=== PATIENT | female | born 1990 | race Caucasian/White ===

== ENCOUNTER 2017-07-25 13:09 | Outpatient (RCR) | payer BC ==
[~2017-07-25] VITALS: Ht 162.6 cm; Wt 87.1 kg
[~2017-07-25 13:09] MED LIST: AMO250L PO; HYDEL PO
--- NOTE | 2017-07-26 11:11 | Medical Nutrition Therapy ---
Nutrition Anthropometrics Height (Inches): 64 Weight (Pounds): 192 Bryce Nutrition Score: Bryce Nutrition Risk Score: Dietary Referral Nutrition Risk Factors: Nutrition Risk Comment: Physical Findings Physical Appearance: wt Skin Appearance Skin Appearance: Edema Edema Location Modifier: Edema Location: Type of Edema: Degree of Edema: Gastrointestinal Symptoms GI Symtoms: Tube Present: Bowel Sounds: Recent Bowel Pattern: Stool Characteristics: Nutrition/Food History Good Skipped Meals: No Alcohol Use: Never Breakfast: oatmeal, fruit Lunch: sandwich, soup, milk Dinner: chicken, salad, rice, milk Snacks: fruit Nutritional Diagnosis Nutrition Diagnosis: Nutr. Knowledge Deficit Nutrition Etiology: Nutr. Knowledge Deficit Diet Type: Diabetic Nutritional Education Nutrition Education Topic: Diabetic Nutrition Learning Readiness: Eager, Interested Teaching Methods: Discussion, Handout, Demonstration Response to Teaching: Return demonstration, Verbalize understanding Teaching Recipient: Patient, Significant Other Nutrition Monitoring & Eval RD Patient Assessment Time: [address] Assessment Type: RD Education Nutritional Comment: Late entry for 07/25/2017 Pt recently diagnosed with Gestational Diabetes after 3 hour GTT of 70, 172, 179, 145. Instructed on SMBG, and pt able to test blood glucuse with very little assistance. BG at 2:00pm was 91 (2 hour PP). Pt and educated on GDM and importance of carbohydrate control at meals/snacks. Discussed meal plan. Pt able to use label reading and knowledge of carb counting to plan simple meals without assistance. Also encouraged pt to slightly increase activity to help BG control and avoid processed foods. I personally spent a total of 60 minutes educating/counseling patient regarding gestational diabetes and nutrtion therapy in a individual setting. See education section and my note above for details. Copies To Copies to: FELA ALBA MD, DIANNE July 26, 2017 11:11
[2017-08-10 13:00] VITALS: Ht 162.6 cm; Wt 87.1 kg
[2017-08-10] MEDS ORDERED: PREN-127 PO (16:30)
[2017-08-11] MEDS ORDERED: LOR5/325 PO (05:39)
[2017-08-11] MEDS ORDERED: IBUP800T37 PO (16:00)
== END 2017-08-20 13:19 | disposition home or self-care (01) ==
LOC: DIET 13:09
PROVIDERS: ATTEND Obstetrics & Gynecology
DX: Z71.3 Dietary counseling and surveillance (principal); O24.419 Gestational diabetes mellitus in pregnancy, unspecified control
CPT/HCPCS: G0108 ×2

== ENCOUNTER 2017-08-10 12:15 | Inpatient (IN) | payer BC ==
[~2017-08-10] VITALS: Ht 162.6 cm; Wt 88.5 kg
[2017-08-10 13:00] VITALS: BP 145/91; Ht 162.6 cm; Wt 88.5 kg
[2017-08-10] MEDS ORDERED: LABETALOL HCL 100 MG/20ML VIAL IVP PRN (13:25)
[2017-08-10] MEDS ORDERED: LIDOCAINE/SOD BICARB 8.4% SYR ONE (14:12)
[2017-08-10 14:27] LABS: PLATELET COUNT, AUTOMATED 225 K/uL (150-450)
--- NOTE | 2017-08-10 15:22 | RADIOLOGY IMAGING REPORT ---
FACILITY: [facility] - [place] PATIENT NAME: Lucia Browning : 1990 MR: [id number] V: [id number] EXAM DATE: ORDERING PHYSICIAN: DAVI GRAY TECHNOLOGIST: Location: [facility] Patient: Lucia Browning : 1990 Visit/Account:[id number] Date of Sevice: 08/10/2017 Limited OB ultrasound Indication: Decreased movement. Comparison: None available FINDINGS: Intrauterine gestations: one presentation: Cephalic heart rate: No evidence of heart tones. Amniotic fluid index: 9.7 cm Largest amniotic fluid pocket 2.7 cm Placenta: Posterior/fundal without previa Gestational Parameters: BPD: 7.46 cm 30 weeks zero days HC: 27.6 cm 30 weeks 2 days AC: 24.22 cm 28 weeks 4 days FL: 5.68 cm 29 weeks 6 days Average ultrasound age (AUA): 29 weeks 5 days PORTIA: 10/21/2017 Estimated weight (EFW): 3 lbs. 0 oz. No heart tones are demonstrated. Findings are consistent with intrauterine demise. IMPRESSION: 1. No evidence of heart tones or movement. Findings are consistent with intrauterine feta l demise. 2. Estimated gestational age 29 weeks 5 days giving which is discordant from LMP which would estimate the gestational age as 31 weeks zero days. Results were discussed with DAVI GRAY at 08/10/2017 3:18 PM. Report Dictated By: Santhosh Vallejo at 08/10/2017 3:06 PM Report E-Signed By: Santhosh Vallejo at 08/10/2017 3:18 PM WSN:[id number]
[2017-08-10] MEDS ORDERED: MISOPROSTOL 25 MCG CAP PV PRN (15:25)
[2017-08-10] MEDS ORDERED: FAMOTIDINE(*) 20MG/50ML PREMIX 50 ML IVPB PRN (15:42)
[2017-08-10] MEDS ORDERED: LR(*) 1000 ML BAG 1,000 ML IV SCH (15:42)
[2017-08-10] MEDS ORDERED: LIDOCAINE 1% LOCAL 300 MG/30ML INJ PRN (15:45)
[2017-08-10] MEDS ORDERED: METOCLOPRAMIDE 10 MG/2 ML SDV IVP PRN (15:45)
[2017-08-10] MEDS ORDERED: fentaNYL CITR 100 MCG/2 ML AMP IVP PRN (15:45)
[2017-08-10] MEDS ORDERED: PREN-127 PO (16:30)
[2017-08-10] MEDS ORDERED: BUPIVACAINE 0.25% MPF INJ EPI PRN (16:35)
[2017-08-10] MEDS ORDERED: ePHEDrine 25 MG/5 ML DISP.SYR IVP PRN (16:35)
[2017-08-10] MEDS ORDERED: BUPIVACAINE 0.5% INJ 30ML VIAL EPI PRN (16:35)
[2017-08-10] MEDS ORDERED: LIDOCAINE/PF 2% 200MG/10ML AMP 200 MG/10 ML AMPUL EPI PRN (16:35)
[2017-08-10] MEDS ORDERED: FENTANYL/ROPIVACAINE 100 ML BAG EPI PRN (16:35)
[2017-08-10] MEDS ORDERED: fentaNYL CITR 100 MCG/2 ML AMP IT PRN (16:35)
[2017-08-10] MEDS ORDERED: LIDO/EPI 2% MPF 1:200,000 20ML EPI PRN (16:35)
[2017-08-10] MEDS ORDERED: LR(*) 1000 ML BAG 1,000 ML IV PRN (16:35)
[2017-08-10] MEDS ORDERED: FLUSH 10 ML SYR IV SCH (17:00)
[2017-08-10] MEDS ORDERED: EPIDURAL KEYS XX PRN (17:00)
[2017-08-10] MEDS ORDERED: ACETAMINOPHEN 500 MG TAB PO PRN (18:10)
[2017-08-10] MEDS: MISOPROSTOL 25 MCG CAP PV PRN (20:03)
[2017-08-11] MEDS: MISOPROSTOL 25 MCG CAP PV PRN (00:05)
--- NOTE | 2017-08-11 01:57 | Anesthesia OB Pre-Anes Eval ---
History of Present Illness Anesthesia Start Date: August 11, 2017 Anesthesia Start Time: 01:55 Complications: demise EDC: Oct 12, 2017 : [id number] Para: 0 Vital Signs: Vital Signs Date Time Temp Pulse Resp B/P (MAP) Pulse Ox O2 Delivery O2 Flow Rate FiO2 08/10/17 13:00 98.1 77 16 145/91 (109) 96 Room Air Pain Ratin Heart Tones: 0 Result Diagram: 08/10/17 1420 08/10/17 1420 Height (Inches): 64.00 Weight (Pounds): 195 BMI Calculated: 33.47 Past Medical History Medical History: hypertension Surgical History: tonsillectomy, other (ACL) Previous Anesthesia: general Attended Childbirth Classes?: Yes, Attended [employer] Lecture, Other ([facility]) Hx Anesthesia Reactions: No Hx Family Anesthesia Reaction: No Home Meds Reported Medications Vits W-Ca,Fe,Fa(<1MG) ( VITAMINS) 1 Each Tablet, 1 EACH PO DAILY, TAB 08/10/17 Discontinued Reported Medications Acetaminophen/Hydrocodone (Lortab 2.5/167 Mg/5 Ml Elixir) 5 Ml Elix, 1 TBS PO Q4H PRN PAIN, #16 0 Refills 2-3 TEASPOONSFUL (10-15 ML) 03/22/10 Amoxicillin (Amoxil) 250 Mg/5 Ml Susp, 1 TBS PO BID, 0 Refills 1 TEASPOONFUL 03/22/10 Allergies: Coded Allergies: No Known Drug Allergies (Verified , 03/22/10) Anesthesia OB ROS Neurological: No migraines/headaches, No seizures, No neuropathy ENT: Denies Tooth caps, Denies Loose teeth, Denies Chipped teeth, Denies Dentures, Denies Bridges, Denies Retainers, Denies Veneers, Denies Implants, Denies Tongue ring Pulmonary: No asthma, No smoker (pks/day/yrs) Airway Class: ll Cardiovascular ROS: No edema, No arrhythmia GI ROS: clear liquids Last Solids Date: August 10, 2017 Last Solids Time: 12:00 ROS: No Herpes, No STD(s), No Liver Disease, No Renal Disease Endocrine ROS: No diabetes, No gestational diabetes, No thyroid disorder Musculoskeletal ROS: No low back pain, No low back injury, No scoliosis ASA Classification: 2 Assessment and Plan Anesthesia Plan: CSE Assessment Past Medical, Surgical, Family and Obstetric Histories reviewed. Please see ACOG chart. Epidural anesthesia risks, complications and benefits explained to patient's satisfaction for labor and vaginal delivery and/or section. Questions invited, none asked. AMELIA HARVEY CRNA August 11, 2017 01:57
--- NOTE | 2017-08-11 03:15 | Procedure Note ---
Anesthetic Placement Note Anesthesia Plan: CSE Permit for Anesthesia Signed: Yes Anesthesia Technique: Patient Sitting Anesthesia Prep: Chlorhexidine Local Anesthetic: 1% Lidocaine, 25 Gauge Needle Amount Local - cc's: 2 Anesthesia Needle: 17g Touhy/Schliff Anesthesia Attempts: 1 Loss of Resistance: Air Depth of ROMAN (cm): 6 Epidural Needle Placement: No CSF, No Blood, No Parasthesia Intrathecal Needle: 27 Gauge Pencan Cerebral Spinal Fluid: Yes, Clear Catheter Insertion (cm): 10 Catheter Type: Silva - Spring Wound Epidural Dressing: Tegaderm, Tape, Adhesive [place] Anesthesia Tray: Lot Number ([id number]), Expiration Date (2018-01-21), Reference Number ([id number]) Anesthesia Medications: Intrathecal Dose: mcg Fentanyl (15), mg Marcaine MPF (1.75), Time (0215) Epidural Test Dose: 1.5 Lido/Epi (1:200,000), Dose - mL (3), Time (0234), Negative Epidural Loading Dose: 0.2% Ropivicaine, With Fentanyl 2mcg/ml, Dose - ml (5), Time (0234) Epidural Infusion: 0.2% Ropivicaine, With Fentanyl 2mcg/ml, Start Time: (0235) Epidural Pump Setting: Bolus Dose - mL (5), Lockout - Minutes (20), Maintenance Rate - mL/hr (6), Maximum per Hour - mL (21) Complications: None Comment: Vital signs stable. Patient comfortable and condition stable. AMELIA HARVEY CRNA August 11, 2017 03:15
--- NOTE | 2017-08-11 03:18 | Anesthesia Progress Note ---
Progress/Maintenance Anesthesia Note Date: August 11, 2017 Anesthesia Note Time: 03:15 Pain Intensity: 0 Pump: On Pump Rate (ML/HR): 6 Sensory Level: T-12 Motor Level: Bending Knees-Bilateral Position: Right, Tilt Assessment and Plan Anesthesia Plan: CSE Assessment Pt. has had minimal itching. Appears to be feeling more comfortable. Attempting to sleep. AMELIA HARVEY CRNA August 11, 2017 03:18
[2017-08-11] MEDS: OXYTOCIN 30 UNIT/D5LR 500 ML 500 ML IV PRN ×2 (05:00→06:10)
--- NOTE | 2017-08-11 05:28 | History & Physical ---
History of Present Illness Age of Patient: 27 : 1 Para or TPAL: 0 EDC per LMP: Oct 12, 2017 Estimated Gestational Age: 31.1 Chief Complaint Decreased movement History of Present Illness Presented yesterday after calling me that she hadn't felt the baby move since 0600 that morning. She had tried water and juice and still no movement. I asked her to come for an NST and upon arrival, no heart tones were found. demise confirmed with bedside u/s. Pt's had been uncomplicated until last week when she was seen and found to have mildly elevated BP and no symptoms but 2+ protein. She was given precautions and a kit for 24h urine collection. When returned late last week, she was found to have significant proteinuria but otherwise no elevated liver enzymes or low platelets or sign of renal insufficiency. She was scheduled for an u/s and NST for today in the office. Pt reports her maternal aunt had a "lupus-like antibody" and had preeclampsia. She also just completed 28 week labs and failed the 1H and 3H GTT. 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 We were adjusting her routine to try to bring the fasting readings down. Past Medical, Surgical, Family and Obstetric Histories reviewed. Please see ACOG chart. History Allergies: Coded Allergies: No Known Drug Allergies (Verified , 03/22/10) Med Rec Home Meds Reported Medications Vits W-Ca,Fe,Fa(<1MG) ( VITAMINS) 1 Each Tablet, 1 EACH PO DAILY, TAB 08/10/17 Discontinued Reported Medications Acetaminophen/Hydrocodone (Lortab 2.5/167 Mg/5 Ml Elixir) 5 Ml Elix, 1 TBS PO Q4H PRN PAIN, #16 0 Refills 2-3 TEASPOONSFUL (10-15 ML) 03/22/10 Amoxicillin (Amoxil) 250 Mg/5 Ml Susp, 1 TBS PO BID, 0 Refills 1 TEASPOONFUL 03/22/10 Review of Systems All Systems Reviewed/Normal: Yes, Except as Noted Neurological: No Dizziness Eyes: No Vision Change Gastrointestinal: No Nausea, No Abdominal Pain Musculoskeletal: No Pain Other as per HPI Exam General Exam Vital Signs Vital Signs Date Time Temp Pulse Resp B/P (MAP) Pulse Ox O2 Delivery O2 Flow Rate FiO2 08/10/17 13:00 98.1 77 16 145/91 (109) 96 Room Air General Apperance: Alert/Awake/No Acute Distress Neuro: No Gross deficits Eyes: Normal Extraocular Movement & Vison Cardiovascular: Regular Rate and Rhythm Respiratory: No Respiratory Distress, Clear to Auscultation Abdomen: Soft, Non-Tender, Non-Distended, Gravid - Non-Tender, RUQ Non-Tender Psychological: Alert & Oriented X3, Appropriate Mood & Affect Cervical Dialation: 0.5 Cervical Effacement (%): 0 Cervical Consistency: Firm Cervical Position: Posterior Presentation: Vertex (by bedside u/s) Uterine Contractions(Q min): 0 Medical Decision Making Data Points Result Diagram: 08/10/17 1420 08/10/17 1420 Hematology Test 08/10/17 00:00 08/10/17 14:20 08/10/17 20:16 Urine Color Straw Urine Clarity Clear Urine pH 7.0 pH (4.8-9.5) Urine Specific [place] 1.005 Urine Protein 100 mg/dL (NEGATIVE) Urine Glucose (UA) Negative mg/dL (NEGATIVE) Urine Ketones Trace mg/dL (NEGATIVE) Urine Blood Negative (NEGATIVE) Urine Nitrite Negative (NEGATIVE) Urine Bilirubin Negative (NEGATIVE) Urine Urobilinogen Negative mg/dL (0.2-1.9) Urine Leukocyte Esterase Negative (NEGATIVE) Urine RBC <1 /HPF (0-2/HPF) Urine WBC <1 /HPF (0-5/HPF) Urine Squamous Epithelial Cells None /LPF (</=FEW) Urine Transitional Epithelial Cells Few /LPF (NONE-FEW) Urine Bacteria Few /HPF (NONE-FEW) Urine Mucus None /HPF (NONE-FEW) Urine Random Creatinine 24.3 mg/dl Urine Random Total Protein 161 mg/dl (<11) Urine Opiates Screen Negative Urine Barbiturates Screen Negative Ur Tricyclic Antidepressants Screen Negative Urine Phencyclidine Screen Negative Urine Amphetamines Screen Negative Urine Benzodiazepines Screen Negative Urine Cocaine Screen Negative Urine Cannabinoids Screen Negative Red Blood Count 4.85 M/uL (4.17-5.56) Mean Corpuscular Volume 90.5 fL (80.0-96.0) Mean Corpuscular Hemoglobin 30.8 pg (26.0-33.0) Mean Corpuscular Hemoglobin Concent 34.1 g/dL (32.0-36.0) Red Cell Distribution Width 14.7 % (11.5-14.5) Mean Platelet Volume 8.2 fL (7.2-11.1) Neutrophils (%) (Auto) 70.5 % (39.4-72.5) Lymphocytes (%) (Auto) 22.4 % (17.6-49.6) Monocytes (%) (Auto) 6.5 % (4.1-12.4) Eosinophils (%) (Auto) 0.3 % (0.4-6.7) Basophils (%) (Auto) 0.3 % (0.3-1.4) Nucleated RBC Relative Count (auto) 0.1 /100WBC Neutrophils # (Auto) 6.4 K/uL (2.0-7.4) Lymphocytes # (Auto) 2.0 K/uL (1.3-3.6) Monocytes # (Auto) 0.6 K/uL (0.3-1.0) Eosinophils # (Auto) 0.0 K/uL (0.0-0.5) Basophils # (Auto) 0.0 K/uL (0.0-0.1) Nucleated RBC Absolute Count (auto) 0.01 K/uL Sodium Level 140 mmol/L (137-145) Potassium Level 3.6 mmol/L (3.5-5.0) Chloride Level 105 mmol/L (98-107) Carbon Dioxide Level 21 mmol/L (22-31) Blood Urea Nitrogen 11 mg/dl (7-18) Creatinine 0.90 mg/dl (0.52-1.04) Glomerular Filtration Rate Calc > 60.0 Random Glucose 69 mg/dl (75-110) Uric Acid 7.5 mg/dl (2.5-7.5) Calcium Level 9.7 mg/dl (8.4-10.2) Total Bilirubin 0.4 mg/dl (0.2-1.3) Aspartate Amino Transf (AST/SGOT) 24 U/L (0-35) Alanine Aminotransferase (ALT/SGPT) 39 U/L (0-56) Alkaline Phosphatase 176 U/L (0-126) Lactate Dehydrogenase 539 U/L (0-590) Total Protein 6.7 gm/dl (6.3-8.2) Albumin 3.6 g/dl (3.5-5.0) Whole Blood Glucose 113 mg/DL (75-110) Chemistry Test 08/10/17 00:00 08/10/17 14:20 08/10/17 20:16 Urine Color Straw Urine Clarity Clear Urine pH 7.0 pH (4.8-9.5) Urine Specific [place] 1.005 Urine Protein 100 mg/dL (NEGATIVE) Urine Glucose (UA) Negative mg/dL (NEGATIVE) Urine Ketones Trace mg/dL (NEGATIVE) Urine Blood Negative (NEGATIVE) Urine Nitrite Negative (NEGATIVE) Urine Bilirubin Negative (NEGATIVE) Urine Urobilinogen Negative mg/dL (0.2-1.9) Urine Leukocyte Esterase Negative (NEGATIVE) Urine RBC <1 /HPF (0-2/HPF) Urine WBC <1 /HPF (0-5/HPF) Urine Squamous Epithelial Cells None /LPF (</=FEW) Urine Transitional Epithelial Cells Few /LPF (NONE-FEW) Urine Bacteria Few /HPF (NONE-FEW) Urine Mucus None /HPF (NONE-FEW) Urine Random Creatinine 24.3 mg/dl Urine Random Total Protein 161 mg/dl (<11) Urine Opiates Screen Negative Urine Barbiturates Screen Negative Ur Tricyclic Antidepressants Screen Negative Urine Phencyclidine Screen Negative Urine Amphetamines Screen Negative Urine Benzodiazepines Screen Negative Urine Cocaine Screen Negative Urine Cannabinoids Screen Negative White Blood Count 9.1 k/uL (4.5-11.0) Red Blood Count 4.85 M/uL (4.17-5.56) Hemoglobin 14.9 g/dL (12.0-16.0) Hematocrit 43.9 % (34.0-47.0) Mean Corpuscular Volume 90.5 fL (80.0-96.0) Mean Corpuscular Hemoglobin 30.8 pg (26.0-33.0) Mean Corpuscular Hemoglobin Concent 34.1 g/dL (32.0-36.0) Red Cell Distribution Width 14.7 % (11.5-14.5) Platelet Count 225 K/uL (150-450) Mean Platelet Volume 8.2 fL (7.2-11.1) Neutrophils (%) (Auto) 70.5 % (39.4-72.5) Lymphocytes (%) (Auto) 22.4 % (17.6-49.6) Monocytes (%) (Auto) 6.5 % (4.1-12.4) Eosinophils (%) (Auto) 0.3 % (0.4-6.7) Basophils (%) (Auto) 0.3 % (0.3-1.4) Nucleated RBC Relative Count (auto) 0.1 /100WBC Neutrophils # (Auto) 6.4 K/uL (2.0-7.4) Lymphocytes # (Auto) 2.0 K/uL (1.3-3.6) Monocytes # (Auto) 0.6 K/uL (0.3-1.0) Eosinophils # (Auto) 0.0 K/uL (0.0-0.5) Basophils # (Auto) 0.0 K/uL (0.0-0.1) Nucleated RBC Absolute Count (auto) 0.01 K/uL Glomerular Filtration Rate Calc > 60.0 Uric Acid 7.5 mg/dl (2.5-7.5) Calcium Level 9.7 mg/dl (8.4-10.2) Total Bilirubin 0.4 mg/dl (0.2-1.3) Aspartate Amino Transf (AST/SGOT) 24 U/L (0-35) Alanine Aminotransferase (ALT/SGPT) 39 U/L (0-56) Alkaline Phosphatase 176 U/L (0-126) Lactate Dehydrogenase 539 U/L (0-590) Total Protein 6.7 gm/dl (6.3-8.2) Albumin 3.6 g/dl (3.5-5.0) Whole Blood Glucose 113 mg/DL (75-110) Coagulation Test 08/10/17 14:20 Toxicology Test 08/10/17 00:00 Urine Opiates Screen Negative Urine Barbiturates Screen Negative Ur Tricyclic Antidepressants Screen Negative Urine Phencyclidine Screen Negative Urine Amphetamines Screen Negative Urine Benzodiazepines Screen Negative Urine Cocaine Screen Negative Urine Cannabinoids Screen Negative Urinalysis Test 08/10/17 00:00 Urine Color Straw Urine Clarity Clear Urine pH 7.0 pH (4.8-9.5) Urine Specific [place] 1.005 Urine Protein 100 mg/dL (NEGATIVE) Urine Glucose (UA) Negative mg/dL (NEGATIVE) Urine Ketones Trace mg/dL (NEGATIVE) Urine Blood Negative (NEGATIVE) Urine Nitrite Negative (NEGATIVE) Urine Bilirubin Negative (NEGATIVE) Urine Urobilinogen Negative mg/dL (0.2-1.9) Urine Leukocyte Esterase Negative (NEGATIVE) Urine RBC <1 /HPF (0-2/HPF) Urine WBC <1 /HPF (0-5/HPF) Urine Squamous Epithelial Cells None /LPF (</=FEW) Urine Transitional Epithelial Cells Few /LPF (NONE-FEW) Urine Bacteria Few /HPF (NONE-FEW) Urine Mucus None /HPF (NONE-FEW) Urine Random Creatinine 24.3 mg/dl Urine Random Total Protein 161 mg/dl (<11) Imaging Ultrasound/Imaging FACILITY: [facility] PATIENT NAME: Lucia Browning : 1990 MR: [id number] V: [id number] EXAM DATE: ORDERING PHYSICIAN: DAVI GRAY TECHNOLOGIST: Location: [facility] - [place] Patient: Lucia Browning : 1990 Visit/Account:[id number] Date of Sevice: 08/10/2017 Limited OB ultrasound Indication: Decreased movement. Comparison: None available FINDINGS: Intrauterine gestations: one presentation: Cephalic heart rate: No evidence of heart tones. Amniotic fluid index: 9.7 cm Largest amniotic fluid pocket 2.7 cm Placenta: Posterior/fundal without previa Gestational Parameters: BPD: 7.46 cm 30 weeks zero days HC: 27.6 cm 30 weeks 2 days AC: 24.22 cm 28 weeks 4 days FL: 5.68 cm 29 weeks 6 days Average ultrasound age (AUA): 29 weeks 5 days PORTIA: 10/21/2017 Estimated weight (EFW): 3 lbs. 0 oz. No heart tones are demonstrated. Findings are consistent with intrauterine demise. IMPRESSION: 1. No evidence of heart tones or movement. Findings are consistent with intrauterine demise. 2. Estimated gestational age 29 weeks 5 days giving which is discordant from LMP which would estimate the gestational age as 31 weeks zero days. Results were discussed with DAVI GRAY at 08/10/2017 3:18 PM. Report Dictated By: Santhosh Vallejo at 08/10/2017 3:06 PM Report E-Signed By: Santhosh Vallejo at 08/10/2017 3:18 PM WSN:[id number] Prophylasis: Adult Deep Vein Thrombosis/Pulmonary: No Pharmacological Contraindicati: Pt at Low Risk for VTE Mechanical Contraindications: Pt at Low Risk for VTE Assessment and Plan Problems: (1) demise, greater than 22 weeks, delivered, current hospitalization Assessment & Plan: Discussed probable cause being preeclampsia. Will initiate lab work/up but some coagulopathy studies will need to wait until no longer . Her BP has remained stable in mild hypertensive range to normal. Discussed induction and will use Cytotec. Pt agrees and plan established. DAVI GRAY MD August 11, 2017 05:28
--- NOTE | 2017-08-11 05:36 | OB Delivery Note ---
Delivery Note Vaginal Delivery Type: Spont. Vaginal Delivery Delivery Date: August 11, 2017 Delivery Time: 04:40 Estimated Gestational Age(wks): 31 Delivery Anesthesia: Epidural Infant Sex: Female Weight (gms): 1370 Estimated Blood Loss: 300 Notes: Three doses of Cytotec administered, 25mcg initially at 1518, 50mcg at 2000 and another at midnight. SROM at 0100 and was 2 cm at 0200. Pt rapidly went to complete and delivered prior to my arrival. Delivery time was 0440 and confirmed . Placenta delivered spontaneously at 0457 by me. Inspection revealed no perineal trauma and uterus was massaged firm with scant bleeding. Fetus examined and no structural anomalies observed, skin was mildly lifting and peeling on torso, lips and feet. Field Service Supervisor in Attendence: No Copies to: DAVI GRAY MD, TRAVIS MD August 11, 2017 05:35
[2017-08-11] MEDS ORDERED: LOR5/325 PO (05:39)
[2017-08-11] MEDS ORDERED: HYDROmorphone HCL 2 MG TAB PO PRN (05:40)
[2017-08-11] MEDS ORDERED: ACETAMINOPHEN 325 MG TAB PO PRN (05:40)
[2017-08-11] MEDS ORDERED: GLYCERIN/WITCH HAZEL LEAF 1 PK TOP PRN (05:40)
[2017-08-11] MEDS ORDERED: MEASLES,MUMP,RUBELLA VAC 0.5ML SC ONE (05:40)
[2017-08-11] MEDS ORDERED: LANOLIN OINT 7 GM TUBE TP PRN (05:40)
[2017-08-11] MEDS ORDERED: BENZOCAINE 20% 60 ML BTL TP PRN (05:40)
[2017-08-11] MEDS ORDERED: HYDROCORTISONE 2.5% CR 30GM TB PR PRN (05:40)
[2017-08-11] MEDS ORDERED: DIPHTH/TETANUS/ACEL. PERTUSSIS IM ONE (05:40)
[2017-08-11] MEDS ORDERED: MAGNESIUM HYDROXIDE* 30ML UDCP PO PRN (05:40)
[2017-08-11] MEDS ORDERED: INFLUENZA VIRUS VAC 0.5 ML SYR IM ONLY ONE (05:40)
[2017-08-11] MEDS ORDERED: OXYTOCIN 10 UNIT/ML SDV ONE (06:10)
[2017-08-11 07:05] VITALS: BP 131/86
[2017-08-11] MEDS ORDERED: MISOPROSTOL 200 MCG TAB PR ONE (07:24)
[2017-08-11] MEDS ORDERED: IBUPROFEN 800 MG TAB PO SCH (09:00)
[2017-08-11] MEDS ORDERED: DOCUSATE CALCIUM 240 MG CAP PO SCH (09:00)
--- NOTE | 2017-08-11 09:40 | Anesthesia Progress Note ---
Progress/Maintenance Anesthesia Note Date: August 11, 2017 Anesthesia Note Time: 05:00 Pain Intensity: 0 Pump: Off Motor Level: Bending Knees-Bilateral, Other (legs heavy) Dilatation: 10 Position: Semi-Fowlers Assessment and Plan Assessment Excellent tolerance of labor and delivery. Pt. received bolus per epidural pump 1x. Pump dc'd and will remove catheter with ambulation. Anesthesia Stop Day: August 11, 2017 Anesthesia Stop Time: 05:00 AMELIA HARVEY CRNA August 11, 2017 09:40
[2017-08-11 09:45] VITALS: BP 115/62
[2017-08-11] MEDS ORDERED: LR(*) 1000 ML BAG 1,000 ML ONE (10:27)
--- NOTE | 2017-08-11 11:50 | Anesthesia Progress Note ---
Progress/Maintenance Anesthesia Note Date: August 11, 2017 Anesthesia Note Time: 11:15 Pain Intensity: 0 Assessment and Plan Assessment Epidural catheter removed entact. Tolerated procedure well without apparent anesthetic complications. LP site clear, no redness or edema. Denies headache or any residual paresthesia. Vital Signs Stable, Patient comfortable and condition stable. AMELIA HARVEY CRNA August 11, 2017 11:50
[2017-08-11 15:30] VITALS: BP 131/83
[2017-08-11] MEDS ORDERED: IBUP800T37 PO (16:00)
== END 2017-08-11 17:50 | disposition home or self-care (01) | DRG 774 ==
LOC: OB 12:15
PROVIDERS: ADMIT Obstetrics & Gynecology; ATTEND Obstetrics & Gynecology
PROC: 10E0XZZ Delivery of Products of Conception, External Approach (ICD-10-PCS; principal; 2017-08-11)
DX: O36.4XX0 Maternal care for intrauterine death, not applicable or unspecified (principal); O14.93 Unspecified pre-eclampsia, third trimester; Z3A.31 31 weeks gestation of pregnancy; Z37.1 Single stillbirth
CPT/HCPCS: 36415; 36416; 76815; 80305; 81001; 81240; 81241; 82040; 82247; 82310; 82374; 82435; 82565; 82570; 82947; 82948; 83615; 84075; 84132; 84155; 84156; 84295; 84450; 84460; 84520; 84550; 85025; 85460; 85610; 85613; 85730; 86147; 86850; 86900; 86901; 88307; J2590; J7120

== ENCOUNTER → 2017-11-03 | Outpatient (CLI) | payer BC ==
[2017-08-10 13:00] VITALS: BMI 33.5
[~2017-11-03] MED LIST changes: +IBUP800T37 PO; +LOR5/325 PO; +PREN-127 PO
--- NOTE | 2017-11-03 11:40 | RADIOLOGY IMAGING REPORT ---
FACILITY: [facility] - [place] PATIENT NAME: Lucia Browning : 1990 MR: [id number] V: [id number] EXAM DATE: ORDERING PHYSICIAN: DAVI GRAY TECHNOLOGIST: Location: [facility] - [place] Patient: Lucia Browning : 1990 Visit/Account:[id number] Date of Sevice: 11/03/2017 KIDNEYS EXAMINATION: Renal ultrasound. History: Elevated creatinine, preeclampsia during , right flank pain COMPARISON STUDIES: CT abdomen pelvis June 07, 2009 FINDINGS: Kidneys: Right kidney- 10.3 x 4.2 x 5.3 cm Left kidney- 5.2 x 4.1 x 10.1 cm Uniform and symmetric blood flow in each kidney by Doppler ultrasound. Hydronephrosis: Mild right hydronephrosis Resistive index on the right 0.62 and on the left 0.58 Bladder: Prevoid volume 745 mL. Post void residual 38 mL. Bilateral ureteral jets are present Abdominal aorta and IVC: Aorta and IVC are patent by Doppler ultrasound. IMPRESSION: Mild right hydronephrosis Report Dictated By: Kortney Cho MD at 11/03/2017 11:33 AM Report E-Signed By: Kortney Cho MD at 11/03/2017 11:35 AM WSN:[email or web address]
== END ==
LOC: US 03:37
PROVIDERS: ATTEND Obstetrics & Gynecology
DX: N13.30 Unspecified hydronephrosis (principal)
CPT/HCPCS: 76705

== ENCOUNTER → 2017-12-15 | Outpatient (CLI) | payer BC ==
[2017-08-10 13:00] VITALS: BMI 33.5
[~2017-12-15] MED LIST changes: +ASPI-1471 PO; +CALC-18; +OMEG100032 PO
[2017-12-15 17:15] LABS: PLATELET COUNT, AUTOMATED 255 K/uL (150-450)
== END ==
LOC: LAB 14:03
PROVIDERS: ATTEND Student in an Organized Health Care Education/Training Program
DX: Z34.91 Encounter for supervision of normal pregnancy, unspecified, first trimester (principal); O09.291 Supervision of pregnancy with other poor reproductive or obstetric history, first trimester
CPT/HCPCS: 36415; 81001; 82040; 82247; 82310; 82374; 82435; 82565; 82570; 82947; 83615; 84075; 84132; 84155; 84156; 84295; 84450; 84460; 84520; 85025; 86146; 86147; 86592; 86703; 86762; 86850; 86900; 86901; 87088; 87340; 87491; 87591

== ENCOUNTER → 2017-12-19 | Outpatient (CLI) | payer BC ==
[2017-08-10 13:00] VITALS: BMI 33.5
== END ==
LOC: LAB 08:41
PROVIDERS: ATTEND Student in an Organized Health Care Education/Training Program
DX: O09.91 Supervision of high risk pregnancy, unspecified, first trimester (principal)
CPT/HCPCS: 36415; 82950; 84156

== ENCOUNTER → 2018-01-16 | Outpatient (CLI) | payer BC ==
[2017-08-10 13:00] VITALS: BMI 33.5
[~2018-01-16] MED LIST changes: +ENOX40DI8 SQ; +FLU60VIA41 IM
[2018-01-16 12:23] LABS: PLATELET COUNT, AUTOMATED 246 K/uL (150-450)
== END ==
LOC: LAB 11:46
PROVIDERS: ATTEND Student in an Organized Health Care Education/Training Program
DX: Z51.81 Encounter for therapeutic drug level monitoring (principal)
CPT/HCPCS: 36415; 85025; 85520

== ENCOUNTER → 2018-02-06 | Outpatient (CLI) | payer BC ==
[2017-08-10 13:00] VITALS: BMI 33.5
[~2018-02-06] MED LIST changes: +BLOO-1511 MC
--- NOTE | 2018-02-06 15:12 | RADIOLOGY IMAGING REPORT ---
FACILITY: [facility] [place] PATIENT NAME: Lucia Browning : 1990 MR: [id number] V: [id number] EXAM DATE: ORDERING PHYSICIAN: [facility] TECHNOLOGIST: Location: [facility] Patient: Lucia Browning : 1990 Visit/Account:[id number] Date of Sevice: 02/06/2018 KIDNEYS HISTORY: Proteinuria, 16 weeks COMPARISON: 11/03/2017 FINDINGS: Kidneys: Right kidney- 11.3 x 4.7 x 6.1 cm with normal parenchymal thickness and echogenicity. No ultrasound evident renal mass lesion or stone. Left kidney- 10.3 x 5.0 x 5.5 cm with normal parenchymal thickness and echogenicity. No ultrasound e vident renal mass lesion or stone. Uniform and symmetric blood flow in each kidney by Doppler ultrasound. Hydronephrosis: There is mild fullness of the right collecting system. The left system is normal.. Bladder: Morphologically unremarkable. Bilateral ureteric jets visualized. There is a small post vo id residual of 27 mL. Abdominal aorta and IVC: Patent by Doppler ultrasound. IMPRESSION: Persistent mild right-sided hydronephrosis. The remainder of the examination is within normal limits . Report Dictated By: Chun Moura at 02/06/2018 3:06 PM Report E-Signed By: Chun Moura at 02/06/2018 3:08 PM WSN:[email or web address]
== END ==
LOC: US 04:42
PROVIDERS: ATTEND Hospitalist
DX: N13.30 Unspecified hydronephrosis (principal); R80.9 Proteinuria, unspecified
CPT/HCPCS: 36415; 76705; 82040; 82310; 82374; 82435; 82565; 82570; 82947; 84100; 84132; 84156; 84295; 84520

== ENCOUNTER → 2018-02-10 | Outpatient (CLI) | payer BC ==
[2017-08-10 13:00] VITALS: BMI 33.5
[2018-02-10 13:29] LABS: PLATELET COUNT, AUTOMATED 230 K/uL (150-450)
== END ==
LOC: LAB 12:58
PROVIDERS: ATTEND Hospitalist
DX: R80.9 Proteinuria, unspecified (principal); O15.9 Eclampsia, unspecified as to time period
CPT/HCPCS: 36415; 82040; 82247; 82248; 82310; 82374; 82435; 82565; 82570; 82947; 84075; 84100; 84132; 84155; 84156; 84295; 84450; 84460; 84520; 85025

== ENCOUNTER → 2018-03-03 | Outpatient (CLI) | payer BC ==
[2017-08-10 13:00] VITALS: BMI 33.5
[~2018-03-03] MED LIST changes: +ENOX40DI9 SQ
== END ==
LOC: LAB 09:41
PROVIDERS: ATTEND Internal Medicine Nephrology
DX: R80.9 Proteinuria, unspecified (principal)
CPT/HCPCS: 36415; 82040; 82310; 82374; 82435; 82565; 82570; 82947; 84100; 84132; 84156; 84295; 84520

== ENCOUNTER → 2018-04-09 | Outpatient (CLI) | payer BC ==
[2017-08-10 13:00] VITALS: BMI 33.5
== END ==
LOC: LAB 10:44
PROVIDERS: ATTEND Internal Medicine Nephrology
DX: R80.9 Proteinuria, unspecified (principal); Z33.1 Pregnant state, incidental
CPT/HCPCS: 36415; 82040; 82310; 82374; 82435; 82565; 82570; 82947; 84100; 84132; 84156; 84295; 84520

== ENCOUNTER → 2018-04-23 | Outpatient (CLI) | payer BC ==
[2017-08-10 13:00] VITALS: BMI 33.5
[~2018-04-23] MED LIST changes: +OSE75 FT
--- NOTE | 2018-04-23 11:29 | RADIOLOGY IMAGING REPORT ---
FACILITY: [facility] - [place] PATIENT NAME: Lucia Browning : 1990 MR: [id number] V: [id number] EXAM DATE: ORDERING PHYSICIAN: TREASURE ULLOA TECHNOLOGIST: Location: [facility] - [place] Patient: Lucia Browning : 1990 Visit/Account:[id number] Date of Sevice: 04/23/2018 ADDENDUM #1 In the first sentence of impression there is a voice recognition error. The sentence should read sin gle viable fetus in cephalic presentation with an estimated gestational age by measurements of 28 wee ks and one day. Report Dictated By: Kortney Cho MD at 04/23/2018 1:39 PM Report E-Signed By: Kortney Cho MD at 04/23/2018 1:40 PM ORIGINAL REPORT [facility] [place] LIIMITED HISTORY: Poor OB history, history of prior demise due to preeclampsia COMPARISON: None. TECHNIQUE: Transabdominal imaging was performed for assessment of the fetus and maternal pelvic s tructures. Transvaginal imaging was not performed. FINDINGS: Intrauterine gestations: One. presentation: Cephalic. heart rate: 135 bpm. Amniotic fluid volume: Normal; WANDA 15 cm; MVP 3.95 cm. Placenta: Posterior. Uterus: Gravid, otherwise grossly unremarkable where visualized. Maternal adnexa/ovaries: Grossly unremarkable, ovaries not visualized. Cervix: Not evaluated. Gestational Parameters: BPD: 7.1 cm, 86th percentile HC: 26.29 cm, 75th percentile AC: 23.2 cm, 59th percentile FL: 5.13 cm, 49th percentile Average ultrasound age (AUA): 28 weeks/ one days Estimated age based on LMP: 27 weeks/ zero days Estimated weight (EFW): 1109 grams +/- 162 grams, consistent with the 66th percentile Anatomic Survey: Anatomic survey was not performed. IMPRESSION: Single viable fetus in cephalic presentation with an estimated gestational age by measurements of 20 weeks and one day. The estimated gestational age by LMP is 27 weeks and zero days. Estimated weight 1109 g consistent with the 66th percentile Report Dictated By: Kortney Cho MD at 04/23/2018 11:17 AM Report E-Signed By: Kortney Cho MD at 04/23/2018 11:23 AM WSN:[email or web address]
== END ==
LOC: RAD 09:05
PROVIDERS: ATTEND Student in an Organized Health Care Education/Training Program
DX: Z02.9 Encounter for administrative examinations, unspecified (principal)

== ENCOUNTER → 2018-04-27 | Outpatient (CLI) | payer BC ==
[2017-08-10 13:00] VITALS: BMI 33.5
[2018-04-27 10:06] LABS: PLATELET COUNT, AUTOMATED 228 K/uL (150-450)
== END ==
LOC: LAB 09:37
PROVIDERS: ATTEND Student in an Organized Health Care Education/Training Program
DX: Z34.92 Encounter for supervision of normal pregnancy, unspecified, second trimester (principal)
CPT/HCPCS: 36415; 82040; 82247; 82310; 82374; 82435; 82565; 82947; 84075; 84132; 84155; 84295; 84450; 84460; 84520; 85025

== ENCOUNTER → 2018-05-04 | Outpatient (CLI) | payer BC ==
[2017-08-10 13:00] VITALS: BMI 33.5
[2018-05-04 09:46] LABS: PLATELET COUNT, AUTOMATED 210 K/uL (150-450)
== END ==
LOC: LAB 09:11
PROVIDERS: ATTEND Student in an Organized Health Care Education/Training Program
DX: O09.299 Supervision of pregnancy with other poor reproductive or obstetric history, unspecified trimester (principal)
CPT/HCPCS: 36415; 82040; 82247; 82310; 82374; 82435; 82565; 82570; 82947; 84075; 84100; 84132; 84155; 84156; 84295; 84450; 84460; 84520; 85025

== ENCOUNTER → 2018-05-11 | Outpatient (CLI) | payer BC ==
[2017-08-10 13:00] VITALS: BMI 33.5
[~2018-05-11] MED LIST changes: +DIPH0.5D12 IM
[2018-05-11 10:04] LABS: PLATELET COUNT, AUTOMATED 174 K/uL (150-450)
== END ==
LOC: LAB 09:23
PROVIDERS: ATTEND Student in an Organized Health Care Education/Training Program
DX: O09.299 Supervision of pregnancy with other poor reproductive or obstetric history, unspecified trimester (principal); O24.419 Gestational diabetes mellitus in pregnancy, unspecified control
CPT/HCPCS: 36415; 82040; 82247; 82310; 82374; 82435; 82565; 82570; 82947; 84075; 84132; 84155; 84156; 84295; 84450; 84460; 84520; 85025

== ENCOUNTER → 2018-05-18 | Outpatient (CLI) | payer BC ==
[2017-08-10 13:00] VITALS: BMI 33.5
== END ==
LOC: LAB 08:25
PROVIDERS: ATTEND Student in an Organized Health Care Education/Training Program
DX: Z02.9 Encounter for administrative examinations, unspecified (principal)

== ENCOUNTER → 2018-05-18 | Outpatient (CLI) | payer BC ==
[2017-08-10 13:00] VITALS: BMI 33.5
--- NOTE | 2018-05-18 14:56 | RADIOLOGY IMAGING REPORT ---
FACILITY: [facility] - [place] PATIENT NAME: Lucia Browning : 1990 MR: [id number] V: [id number] EXAM DATE: ORDERING PHYSICIAN: TREASURE ULLOA TECHNOLOGIST: Location: [facility] [place] Patient: Lucia Browning : 1990 Visit/Account:[id number] Date of Sevice: 05/18/2018 [facility] [place]: Evaluate growth and WANDA COMPARISON: April 23, 2018 TECHNIQUE: Transabdominal imaging was performed for assessment of the fetus and maternal pelvic s tructures. Transvaginal imaging was not performed. FINDINGS: Intrauterine gestations: One. presentation: Cephalic. heart rate: 139 bpm. Amniotic fluid volume: Normal; WANDA 15.74 cm; MVP 4.42 cm. Placenta: Posterior with no evidence of a placenta previa. A few placental lakes are noted. Uterus: Gravid, otherwise grossly unremarkable where visualized. Maternal adnexa/ovaries: Not evaluated. Cervix: Not evaluated. Gestational Parameters: BPD: 7.88 cm, 72 percentile HC: 29.12 cm, 50th percentile AC: 27.9 cm, 83rd percentile FL: 6.11 cm, 68th percentile Average ultrasound age (AUA): 32 weeks/ zero days Estimated age based on LMP: 30 weeks/ four days Estimated weight (EFW): 1850 grams +/- 270 grams, 81st percentile Anatomic Survey: Anatomic survey was not performed at this time. IMPRESSION: Single viable fetus in cephalic presentation with an estimated gestational age by measurements of 32 weeks and zero days. Estimated gestational age by LMP is 30 weeks and four days Estimated weight is 1850 g consistent with 81st percentile Report Dictated By: Kortney Cho MD at 05/18/2018 2:47 PM Report E-Signed By: Kortney Cho MD at 05/18/2018 2:52 PM WSN:[email or web address]
== END ==
LOC: RAD 09:40
PROVIDERS: ATTEND Student in an Organized Health Care Education/Training Program
DX: Z02.9 Encounter for administrative examinations, unspecified (principal)

== ENCOUNTER → 2018-05-18 | Outpatient (CLI) | payer BC ==
[2017-08-10 13:00] VITALS: BMI 33.5
== END ==
LOC: LAB 08:10
PROVIDERS: ATTEND Student in an Organized Health Care Education/Training Program
DX: O24.419 Gestational diabetes mellitus in pregnancy, unspecified control (principal)
CPT/HCPCS: 36415; 82040; 82247; 82310; 82374; 82435; 82565; 82570; 82947; 84075; 84132; 84155; 84156; 84295; 84450; 84460; 84520; 85027

== ENCOUNTER 2018-05-20 17:22 | Outpatient (CLI) | payer BC ==
[~2018-05-20] VITALS: Ht 162.6 cm; Wt 77.6 kg
[2018-05-20 17:36] VITALS: Ht 162.6 cm; Wt 77.6 kg
[2018-05-20] MEDS ORDERED: ACETAMINOPHEN 500 MG TAB PO ONE (17:55)
== END 2018-05-20 18:40 | disposition home or self-care (01) ==
LOC: OB 17:22 → L&D 17:22 → UNDOADMIN 17:22 → UNDODISIN 18:40 → L&D 18:40 → EDSTATUS 05-22 07:12
PROVIDERS: ATTEND Obstetrics & Gynecology
DX: O26.893 Other specified pregnancy related conditions, third trimester (principal); O24.419 Gestational diabetes mellitus in pregnancy, unspecified control; Z3A.31 31 weeks gestation of pregnancy
CPT/HCPCS: 36416; 82948; 99213

== ENCOUNTER → 2018-05-25 | Outpatient (CLI) | payer BC ==
[2018-05-20 17:36] VITALS: BMI 29.4
[2018-05-25 09:31] LABS: PLATELET COUNT, AUTOMATED 206 K/uL (150-450)
== END ==
LOC: LAB 08:10
PROVIDERS: ATTEND Student in an Organized Health Care Education/Training Program
DX: O13.9 Gestational [pregnancy-induced] hypertension without significant proteinuria, unspecified trimester (principal); O24.419 Gestational diabetes mellitus in pregnancy, unspecified control
CPT/HCPCS: 36415; 82040; 82247; 82310; 82374; 82435; 82565; 82570; 82947; 84075; 84132; 84155; 84156; 84295; 84450; 84460; 84520; 85025

== ENCOUNTER → 2018-06-01 | Outpatient (CLI) | payer BC ==
[2018-05-20 17:36] VITALS: BMI 29.4
== END ==
LOC: LAB 08:37
PROVIDERS: ATTEND Student in an Organized Health Care Education/Training Program
DX: O24.419 Gestational diabetes mellitus in pregnancy, unspecified control (principal)
CPT/HCPCS: 36415; 82040; 82247; 82310; 82374; 82435; 82565; 82570; 82947; 84075; 84132; 84155; 84156; 84295; 84450; 84460; 84520; 85027

== ENCOUNTER → 2018-06-08 | Outpatient (CLI) | payer BC ==
[2018-05-20 17:36] VITALS: BMI 29.4
== END ==
LOC: LAB 08:03
PROVIDERS: ATTEND Student in an Organized Health Care Education/Training Program
DX: O13.9 Gestational [pregnancy-induced] hypertension without significant proteinuria, unspecified trimester (principal)
CPT/HCPCS: 36415; 82040; 82247; 82310; 82374; 82435; 82565; 82570; 82947; 84075; 84132; 84155; 84156; 84295; 84450; 84460; 84520; 85027

== ENCOUNTER → 2018-06-15 | Outpatient (CLI) | payer BC ==
[2018-05-20 17:36] VITALS: BMI 29.4
[2018-06-15 10:04] LABS: PLATELET COUNT, AUTOMATED 182 K/uL (150-450)
== END ==
LOC: LAB 09:24
PROVIDERS: ATTEND Student in an Organized Health Care Education/Training Program
DX: O13.3 Gestational [pregnancy-induced] hypertension without significant proteinuria, third trimester (principal)
CPT/HCPCS: 36415; 82040; 82247; 82310; 82374; 82435; 82565; 82570; 82947; 84075; 84132; 84155; 84156; 84295; 84450; 84460; 84520; 85025

== ENCOUNTER → 2018-06-25 | Outpatient (CLI) | payer BC ==
[2018-05-20 17:36] VITALS: BMI 29.4
[~2018-06-25] MED LIST changes: +BET6I IM ONLY; +VALA500T66 PO
== END ==
LOC: LAB 07:46
PROVIDERS: ATTEND Student in an Organized Health Care Education/Training Program
DX: O13.9 Gestational [pregnancy-induced] hypertension without significant proteinuria, unspecified trimester (principal); O09.299 Supervision of pregnancy with other poor reproductive or obstetric history, unspecified trimester; Z36.85 Encounter for antenatal screening for Streptococcus B
CPT/HCPCS: 36415; 82040; 82247; 82310; 82374; 82435; 82565; 82570; 82947; 84075; 84132; 84155; 84156; 84295; 84450; 84460; 84520; 85027; 87081

== ENCOUNTER 2018-07-02 10:50 | Inpatient (IN) | payer BC ==
[~2018-07-02] VITALS: Ht 162.6 cm; Wt 81.6 kg
[2018-07-02] MEDS: MAGNESIUM SULF 20 GM/500 ML IV 500 ML IV SCH ×2 (03:00→14:54)
[~2018-07-02 10:50] MED LIST changes: -DOCU-416 PO
[2018-07-02] MEDS ORDERED: FAMOTIDINE(*) 20MG/50ML PREMIX 50 ML IVPB PRN (11:53)
[2018-07-02] MEDS ORDERED: fentaNYL CITR 100 MCG/2 ML AMP IVP PRN (11:55)
[2018-07-02] MEDS ORDERED: FLUSH 10 ML SYR IVP PRN (11:55)
[2018-07-02] MEDS ORDERED: LIDOCAINE 1% LOCAL 300 MG/30ML INJ PRN (11:55)
[2018-07-02] MEDS ORDERED: MISOPROSTOL 25 MCG CAP PV PRN (11:55)
[2018-07-02] MEDS ORDERED: METOCLOPRAMIDE 10 MG/2 ML SDV IVP PRN (11:55)
[2018-07-02 12:15] VITALS: BP 133/90; Ht 162.6 cm; Wt 81.6 kg
--- NOTE | 2018-07-02 13:28 | History & Physical ---
History of Present Illness EDC per LMP: July 23, 2018 Estimated Gestational Age: 37.0 Chief Complaint Induction History of Present Illness 28-year-old at 37w0d presents for induction of labor. She has been monitored for gestational hypertension. She feels well today, but had routine weekly labs done which showed elevated liver enzymes. She is otherwise complicated by history of 31 week IUFD and GDMA1. She reports good FM. No preeclampsia symptoms. PNC by IMG. PNR reviewed. History Patient's Blood Type: A Positive Rubella Status: Immune Group B Strep Screen: Negative Obstetrical History: 08/11/17 - 31wk , preeclampsia and GDMA1 Past Medical History: PMH: None PSH: Right knee surgery Allergies: Coded Allergies: No Known Drug Allergies (Verified , 03/22/10) Social History: No T/E/D. Family History: Blood clots Maternal Aunt (Lupus) FH: cancer MOTHER (Ovarian cancer ) MGM (Lung Cancer) FH: heart disease MGF FH: thyroid condition MOTHER Med Rec Home Meds Active Scripts Valacyclovir Hcl (VALTREX) 500 Mg Tablet, 500 MG PO BID, #40 TAB 1 Refill Prov:TREASURE ULLOA DO 06/25/18 Enoxaparin Sodium (ENOXAPARIN SODIUM) 40 Mg/0.4 Ml Disp.syrin, 40 MG SQ BID for 30 Days, #60 SYR 1 Refill Prov:TREASURE ULLOA DO 04/23/18 Blood Sugar Diagnostic (GLUCOSE TEST STRIP) 1 Each Strip, 1 EACH MC 4xDaily for 30 Days, #120 STRIP 4 Refills Prov:TREASURE ULLOA DO 04/23/18 Aspirin (ASPIR 81) 81 Mg Tablet.dr, 1 TAB PO BID for 1 Day, TAB Prov:TREASURE ULLOA DO 04/09/18 Enoxaparin Sodium (LOVENOX) 40 Mg/0.4 Ml Disp.syrin, 40 MG SQ BID, #30 SYR 3 Refills Prov:TREASURE ULLOA DO 01/09/18 Reported Medications Calcium Carbonate/Vitamin D3 (Calcium 500 mg Chewable Tablet) 500 Mg-100 Tab.chew 12/15/17 Monson-3 Fatty Acids (OMEGA-3) Unknown Strength Capsule, PO, CAPSULE 11/17/17 Vits W-Ca,Fe,Fa(<1MG) ( VITAMINS) 1 Each Tablet, 1 EACH PO DAILY, TAB 08/10/17 Review of Systems Constitutional: No Fever Neurological: No Syncope Eyes: No Vision Change Cardiovascular: No Chest Pain Respiratory: No Shortness of Breath Gastrointestinal: No Nausea, No Vomiting, No Diarrhea Genitourinary: No Dysuria Musculoskeletal: No Pain Psychiatric: No Depression, No Anxiety Exam General Exam Vital Signs VS reviewed (BP normal) General Apperance: Alert/Awake/No Acute Distress Neuro: No Gross deficits Eyes: Normal Extraocular Movement & Vison Cardiovascular: Regular Rate and Rhythm Respiratory: No Respiratory Distress, Clear to Auscultation Abdomen: Gravid - Non-Tender : Normal Musculoskeletal: No Weakness/Pain Extremities: No Cyanosis,Clubbing or Edema Integumentary: Skin Intact without Lesions or Rash Psychological: Alert & Oriented X3, Appropriate Mood & Affect Cervical Dialation: 2 Cervical Effacement (%): 80 Cervical Consistency: Soft Cervical Position: Mid Station: -2 Presentation: Vertex Uterine Contractions(Q min): 0 Fetus FHT Category: I Assessment and Plan Problems: (1) Pre-eclampsia during in third trimester, antepartum Assessment & Plan: 28-year-old at 37w0d presents for induction of labor for preeclampsia with severe features of elevated liver enzymes. Will start magnesium as long as [facility] agrees (waiting for return phone call). Pr:Cr is 0.6 today. PLT 201, AST 39, ALT 243, Alk phos 189, Cr 0.8. Betamethasone 4/4 and 4/5. Cytotec 25mcg placed vaginally at 1250. Will re-evaluate in 4 hours. (2) Gestational diabetes mellitus, class A1 Assessment & Plan: Will check hourly blood sugars in active labor. (3) 37 weeks gestation of CHANNING DOWNING MD Jul 02, 2018 13:28
[2018-07-02] MEDS ORDERED: MAGNESIUM SUL* 4 GM/100 ML BAG 100 ML IVPB ONE (13:55)
[2018-07-02] MEDS ORDERED: CALCIUM GLUC 10% 100 MG/ML VL IVP ONE (13:55)
[2018-07-02] MEDS: LR(*) 1000 ML BAG 1,000 ML IV PRN (14:54)
--- NOTE | 2018-07-02 16:34 | Labor Progress Note ---
Labor Subjective Progress Notes Subjective Pt is doing well. She is cramping slightly but not much. No preeclampsia symptoms. She feels flushed with magnesium. Labor Objective Vital Signs Vital Signs Date Time Temp Pulse Resp B/P (MAP) Pulse Ox O2 Delivery O2 Flow Rate FiO2 07/02/18 12:15 98.7 99 18 133/90 (104) 94 Room Air Cervical Dialation: 3 Cervical Effacement (%): 80 Cervical Consistency: Soft Cervical Position: Mid Station: -1 Presentation: Vertex Uterine Contractions(Q min): 6 Uterine Contraction Strength: Mild UC Resting Tone: Soft Fetus FHT Category: I General Exam General Appearance: Alert/Awake/No Acute Distress Respiratory: No Respiratory Distress Abdomen: Gravid - Non-Tender Musculoskeletal: No Weakness/Pain Extremities: No Cyanosis,Clubbing or Edema; No Clonus, No Edema Integumentary: Skin Intact without Lesions or Rash Psychological: Alert & Oriented X3, Appropriate Mood & Affect Assessment and Plan Problems: (1) Pre-eclampsia during in third trimester, antepartum Assessment & Plan: BP are stable. Cervix is favorable now. Will proceed with pitocin. I spoke with GARRETT Hermosillo, who is comfortable with epidural/spinal after 12hrs from last Lovenox, which was 0500 today. (2) Gestational diabetes mellitus, class A1 Assessment & Plan: Will check hourly blood sugars in active labor. (3) 37 weeks gestation of CHANNING DOWNING MD Jul 02, 2018 16:34
[2018-07-02] MEDS ORDERED: OXYTOCIN 30 UNIT/D5LR 500 ML 500 ML IV PRN ×2 (16:37)
[2018-07-02] MEDS ORDERED: LIDO/EPI 2% MPF 1:200,000 20ML EPI PRN (19:20)
[2018-07-02] MEDS ORDERED: FENTANYL/ROPIVACAINE 100 ML BAG EPI PRN (19:20)
[2018-07-02] MEDS ORDERED: fentaNYL CITR 100 MCG/2 ML AMP IT PRN (19:20)
[2018-07-02] MEDS ORDERED: BUPIVACAINE 0.25% MPF INJ EPI PRN (19:20)
[2018-07-02] MEDS ORDERED: LIDOCAINE/PF 2% 200MG/10ML AMP 200 MG/10 ML AMPUL EPI PRN (19:20)
[2018-07-02] MEDS ORDERED: BUPIVACAINE 0.5% INJ 30ML VIAL EPI PRN (19:20)
--- NOTE | 2018-07-02 20:48 | Labor Progress Note ---
Labor Subjective Progress Notes Subjective Pt is feeling more pain. She is coping well with breathing. No preeclampsia symptoms. Labor Objective Vital Signs Vital Signs Date Time Temp Pulse Resp B/P (MAP) Pulse Ox O2 Delivery O2 Flow Rate FiO2 07/02/18 12:15 98.7 99 18 133/90 (104) 94 Room Air Vaginal Discharge/Fluid?: Clear Fluid Cervical Dialation: 6 Cervical Effacement (%): 80 Cervical Consistency: Soft Cervical Position: Posterior Station: -1 Presentation: Vertex Uterine Contractions(Q min): 3 Uterine Contraction Strength: Moderate UC Resting Tone: Soft Fetus FHT Category: I General Exam General Appearance: Alert/Awake/No Acute Distress Cardiovascular: Regular Rate and Rhythm Respiratory: No Respiratory Distress, Clear to Auscultation Abdomen: Gravid - Non-Tender : Normal Musculoskeletal: No Weakness/Pain Extremities: No Cyanosis,Clubbing or Edema; No Clonus Integumentary: Skin Intact without Lesions or Rash Psychological: Alert & Oriented X3, Appropriate Mood & Affect Other Result Diagram: 07/02/18 1757 07/02/181756 Assessment and Plan Problems: (1) Pre-eclampsia during in third trimester, antepartum Assessment & Plan: BP are stable. Labs are stable from earlier at 1800hrs, cre atinine is 1 now. She is progressing well to 6cm on pitocin. AROM with clear fluid. Anticipate . (2) Gestational diabetes mellitus, class A1 Assessment & Plan: Accuchecks so far are normal. (3) 37 weeks gestation of CHANNING DOWNING MD Jul 02, 2018 20:48
[2018-07-02] MEDS ORDERED: MISOPROSTOL 200 MCG TAB ONE (22:17)
[2018-07-02] MEDS ORDERED: CARBOPROST TROMETHAM 250MCG/ML IM ONLY ONE (22:18)
[2018-07-02] MEDS ORDERED: METHYLERGONOVINE MAL 0.2MG/ML ONE (22:18)
--- NOTE | 2018-07-02 23:11 | OB Delivery Note ---
Delivery Note Vaginal Delivery Type: Spont. Vaginal Delivery Delivery Date: Jul 02, 2018 Delivery Time: 22:45 Estimated Gestational Age(wks): 37.0 Length of Labor Stage II (hrs): 0.3 Labor Stage III (minutes): 6 Delivery Anesthesia: Local Sex: Male Weight (gms): 2960 [place] Apgars: 1 Minute (9), 5 Minute (9) Estimated Blood Loss: 300 Notes: IOL for preeclampsia with severe features (elevated liver transaminases). Cytotec x 1, then pitocin, then AROM. 20 minutes of pushing. Sagger Maker in Attendence: CHANNING Dubose MD Jul 02, 2018 23:11
[2018-07-02] MEDS ORDERED: MAGNESIUM HYDROXIDE* 30ML UDCP PO PRN (23:20)
[2018-07-02] MEDS ORDERED: INFLUENZA VIRUS VAC 0.5ML SYR IM ONLY ONE (23:20)
[2018-07-02] MEDS ORDERED: HYDROCORTISONE 2.5% CR 30GM TB PR PRN (23:20)
[2018-07-02] MEDS ORDERED: IBUP800T37 PO (23:20)
[2018-07-02] MEDS ORDERED: APAP/HYDROCODONE 325/5 TAB PO PRN (23:20)
[2018-07-02] MEDS ORDERED: DOCU-416 PO (23:20)
[2018-07-02] MEDS ORDERED: LANOLIN OINT 7 GM TUBE TP PRN (23:20)
[2018-07-02] MEDS ORDERED: MEASLES,MUMP,RUBELLA VAC 0.5ML SUBQ ONE (23:20)
[2018-07-02] MEDS ORDERED: DIPHTH/TETANUS/ACEL. PERTUSSIS IM ONLY ONE (23:20)
[2018-07-03] MEDS: IBUPROFEN 800 MG TAB PO SCH ×3 (00:32→16:45)
[2018-07-03] MEDS: BENZOCAINE 20% 60 ML BTL TP PRN (00:33)
[2018-07-03] MEDS: GLYCERIN/WITCH HAZEL LEAF 1 PK TP PRN (00:33)
--- NOTE | 2018-07-03 01:38 | DELIVERY NOTE ---
DELIVERY DATE: July 02, 2018 SURGEON: Siobhan Schreiber MD ANESTHESIA: Local infiltration of lidocaine for repair of laceration. PREOPERATIVE DIAGNOSIS Intrauterine at 37 weeks and 0 days, presenting for induction of labor due to preeclampsia with severe features of elevated liver transaminases. POSTOPERATIVE DIAGNOSES 1. Intrauterine at 37 weeks and 0 days, presenting for induction of labor due to preeclampsia with severe features of elevated liver transaminases. 2. Delivery of a viable male at 2245 hours weighing 2960 g (or 6 pounds 8 ounces), with Apgars of 9 at one minute and 9 at five minutes. PROCEDURE 1. Spontaneous vaginal delivery. 2. Repair of second-degree midline laceration. ESTIMATED BLOOD LOSS 300 mL INDICATIONS FOR PROCEDURE This patient is a 28-year-old 2, para 0-1-0-0, who presents at 37 weeks and 0 days for an induction of labor. She had been monitored for gestational hypertension and later found to have elevated liver enzymes on her weekly labs. Her weykxpk-zu-hbwjjskmrn ratio also increased to 0.6. She was started on magnesium. She was then administered Cytotec 25 mcg vaginally. She progressed well with the Cytotec and then was allowed to start on Pitocin. After three hours of Pitocin, an amniotomy was performed with return of clear fluid. The patient then progressed to complete at 2225 hours and was prepared for pushing. DESCRIPTION OF PROCEDURE The patient was properly identified. She was placed in dorsal lithotomy position. She was prepped and draped in usual fashion for a vaginal delivery. She was able to push and, over a 20-minute period, brought the 's vertex to the perineum. She was then able to deliver the infant's vertex spontaneously in the LIANNA position over an intact perineum. A nuchal cord was not noted. A compound presentation of the posterior arm, which was the 's left arm, was then noted and delivered through. The anterior shoulder soon followed. The remainder of the infant was easily delivered. The had spontaneous cry and spontaneous movement of all four extremities. The infant was dried, stimulated, and the oropharynx and nasopharynx were bulb-suctioned. The was then passed to the mother's abdomen, where nursing personnel was in attendance. After 40 seconds, the cord was clamped x2 and cut by the fro of the baby. Cord blood was then obtained and passed off the table. Pitocin was started in the IV fluids to help firm the uterus. The placenta then delivered after six minutes spontaneously and was passed off the table. Examination of the cervix, vaginal vault and perineum revealed a second-degree vaginal laceration in the midline, which was extended very slightly to the perineum. This area was infiltrated with 1% lidocaine. A repair using a 2-0 Vicryl was then performed. Hemostasis was assured. The patient tolerated this procedure well and recovered in Labor and Delivery with her infant. All sponge and needle counts were correct at the end of this procedure. [facility]
[2018-07-03] MEDS ORDERED: SALINE 0.65% NAS SPR 44 ML BTL PRN (05:00)
[2018-07-03] MEDS: LR(*) 1000 ML BAG 1,000 ML IV PRN ×3 (05:00→18:26)
[2018-07-03] MEDS ORDERED: ePHEDrine 25 MG/5 ML DISP.SYR IVP ONE (05:15)
[2018-07-03] MEDS ORDERED: METHYLERGONOVINE MAL 0.2MG/ML ONE (05:21)
[2018-07-03] MEDS ORDERED: MISOPROSTOL 200 MCG TAB ONE (05:25)
[2018-07-03] MEDS ORDERED: ceFAZolin 1 GM VIAL IVPB ONE (05:40)
--- NOTE | 2018-07-03 06:00 | OB/GYN Progress Note ---
OB Subjective Progress Notes Subjective After delivery, patient was feeling relatively weak and every time she got up to go to the bathroom she was lightheaded. She tried a bed-side comode but was unable to void there. She then had a downey catheter placed. The nurse called me into the room at 0510 hours due to bleeding and the patient being hypotens edwin. OB Objective Physical Exam Vital Signs Date Time Temp Pulse Resp B/P (MAP) Pulse Ox O2 Delivery O2 Flow Rate FiO2 07/02/18 12:15 98.7 99 18 133/90 (104) 94 Room Air Intake and Output 07/03/18 07:00 Output Total 1750 ml Balance -1750 ml Output Urine Total 1750 ml # Voids 3 General Appearance: Alert/Awake/No Acute Distress Neurological: No Gross deficits Eyes: Normal Extraocular Movement & Vison Cardiovascular: Normal Rhythm & Peripheral Pulses, Regular Rate and Rhythm Respiratory: No Respiratory Distress, Clear to Auscultation Abdomen: Soft, Non-Tender, Non-Distended, Fundus Boggy : Other (Abundant clot in vagina and lower uterine segment) Extremities: No Cyanosis,Clubbing or Edema; No Clonus Integumentary: Pallor Psychological: Alert & Oriented X3, Appropriate Mood & Affect Result Diagram: 07/03/18 0000 07/03/18 0000 Assessment and Plan Problems: (1) hemorrhage Assessment & Plan: The nurse called me into the room at 0510 hours due to bleeding and the patient being hypotensive. When I arrived, she had expressed at least 300cc of clot from the vagina/uterus. I did a brief exam which revealed a boggy uterus and abundant clot in the vagina. The patient was unable to tolerate an attempt at expressing even from the lower vagina. She was given pitocin 10 IM and methergine 0.2mg, which I deemed safe since she was hypotensive. She was also given Fentanyl 100mcg. Bay Romero gave her some phenylephrine 120mcg that helped her BP and she felt better immediately. She was then able to tolerate a uterine exploration. I expressed at least another 300cc of clot with this. She tolerated it well. I then placed cytotec 800mcg rectally. She has excellent uterine tone at this time. Hgb and HCT are 11.9 and 35.8. I will hold off on transfusion since she responded well to phenylephrine and instead give 1L of LR; her lungs are clear. She was given Ancef 1gm IV. (2) Pre-eclampsia during in third trimester, antepartum Assessment & Plan: Preeclampsia with severe features (elevated liver transaminases). On magnesium until 24hrs after delivery (~2330 tonight). Will monitor labs this morning. If they are still stable or decreased, will wait to re-evaluate until tomorrow morning. BP are ok (low now due to bleeding). (3) Gestational diabetes mellitus, class A1 Assessment & Plan: No accuchecks . Will plan 2hr GTT at her 6wk visit. (4) 37 weeks gestation of Problem Qualifiers (1) hemorrhage: hemorrhage type: delayed hemorrhage Qualified Codes: O72.2 - Delayed and secondary hemorrhage CHANNING DOWNING MD Jul 03, 2018 06:00
[2018-07-03] MEDS ORDERED: OXYTOCIN 10 UNIT/ML SDV IM ONE (06:05)
--- NOTE | 2018-07-03 06:08 | Anesthesia Post Eval Note ---
Anesthesia Post Eval Note Pt post delivery hemorrhaging with hypotensive BP 59/30. Pt appears diaphoretic and pale with complaints of N/V. 120mcg of phenylepherine given IV with good response. BP recovered into the low 100's systolic pressures. no further intervention required. Pt able to participate in Eval: Yes Cardiovascular Status: Satisfactory Respiratory Status: Satisfactory Pain Managment: Satisfactory PO Nausea/Vomiting: Satisfactory Temperature Management: Satisfactory Mental Status: Alert, Oriented X3 Post-Op Hydration Status: Satisfactory LIZZIE HEARN INTERNATIONAL LOGISTICS ANALYST Jul 03, 2018 06:08
--- NOTE | 2018-07-03 06:17 | NUR ---
AT 0500, PATIENT C/O NAUSEA, LIGHTHEADEDNESS, A LARGE GUSH, OVERALL FEELING OFF. FUNDAL MASSAGE YIELDED ONE TANGERINE SIZED CLOT (TOTAL OF 220CC). AT 0510, AFTER PT C/O ANOTHER GUSH, FUNDAL MASSAGE YIELDED GRAPEFRUIT SIZED CLOT (TOTAL OF 354CC). MD NOTIFIED - TO COME TO BEDSIDE. METHERGINE 0.2 Addendum: 07/03/18 at 0632 by CHARLEEN RAYA RN AT 0500, PATIENT C/O NAUSEA, LIGHTHEADEDNESS, A LARGE GUSH, OVERALL FEELING OFF. FUNDAL MASSAGE YIELDED ONE TANGERINE SIZED CLOT (TOTAL OF 220CC). AT 0510, AFTER PT C/O ANOTHER GUSH, FUNDAL MASSAGE YIELDED GRAPEFRUIT SIZED CLOT (TOTAL OF 354CC). MD NOTIFIED - TO COME TO BEDSIDE. METHERGINE 0.2 MG IM, OXYTOCIN 10 UNITS IM, CYTOTEC 800 MG RECTALLY, AND MANUAL REMOVAL BY MD. 1 L BOLUS LR STARTED, PHENYLEPHRINE GIVEN PER WRAPPER OPENER FOR LOW B/P'S. Q5 MIN FUNDAL MASSAGE FOLLOWING MANUAL REMOVAL (PER MD) YIELDING SCANT TO SMALL LOCHIA. SECOND IV TO BE PLACED.
[2018-07-03] MEDS: DOCUSATE CALCIUM 240 MG CAP PO SCH ×2 (09:49→20:40)
[2018-07-03] MEDS: ACETAMINOPHEN 325 MG TAB PO PRN (10:40)
--- NOTE | 2018-07-03 11:06 | OB/GYN Progress Note ---
OB Subjective Progress Notes Subjective Patient is exhausted. She is trying to get rest. She does not have any pain issues. Her lochia is normal at this time. She denies any preeclampsia symptoms, but is generally slightly weak. She denies any chest pain, shortness of breath or dizziness. However, her Barriga catheter is in, so she has not been ambulating recently. OB Objective Physical Exam Vital Signs Date Time Temp Pulse Resp B/P (MAP) Pulse Ox O2 Delivery O2 Flow Rate FiO2 07/02/18 12:15 98.7 99 18 133/90 (104) 94 Room Air Intake and Output 07/03/18 07:00 Output Total 1750 ml Balance -1750 ml Output Urine Total 1750 ml # Voids 3 General Appearance: Alert/Awake/No Acute Distress Neurological: No Gross deficits Eyes: Normal Extraocular Movement & Vison Cardiovascular: Normal Rhythm & Peripheral Pulses, Regular Rate and Rhythm Respiratory: No Respiratory Distress, Clear to Auscultation Abdomen: Soft, Non-Tender, Non-Distended, Fundus Firm Extremities: No Cyanosis,Clubbing or Edema; No Clonus Integumentary: Pallor Psychological: Alert & Oriented X3, Appropriate Mood & Affect Result Diagram: 07/03/18 0542 07/03/18 0542 Assessment and Plan Problems: (1) hemorrhage Assessment & Plan: Uterine atony has stabilized. She has no concerning bleeding at this time. A repeat CBC is pending, in order to determine if she would be a candidate for a transfusion. (2) Pre-eclampsia during in third trimester, antepartum Assessment & Plan: Preeclampsia with severe features (elevated liver transaminases). On magnesium until 24hrs after delivery (~2330 tonight). Will monitor labs tomorrow morning. BP are stable at this time. (3) Gestational diabetes mellitus, class A1 Assessment & Plan: No accuchecks . Will plan 2hr GTT at her 6wk visit. (4) examination following vaginal delivery Assessment & Plan: PPD#1 s/p . Routine orders except as above. Problem Qualifiers (1) hemorrhage: hemorrhage type: delayed hemorrhage Qualified Codes: O72.2 - Delayed and secondary hemorrhage CHANNING DOWNING MD Jul 03, 2018 11:06
[2018-07-03 11:10] VITALS: BP 149/83
[2018-07-03] MEDS: MAGNESIUM SULF 20 GM/500 ML IV 500 ML IV SCH ×2 (11:40→19:52)
[2018-07-03 15:00] VITALS: BP 150/76
[2018-07-03 20:45] VITALS: BP 126/73
[2018-07-03 22:50] VITALS: BP 127/66
[2018-07-03 23:45] VITALS: BP 113/67
[2018-07-04] MEDS: IBUPROFEN 800 MG TAB PO SCH ×3 (01:08→17:46)
[2018-07-04] MEDS: ACETAMINOPHEN 325 MG TAB PO PRN (03:33)
[2018-07-04 03:45] VITALS: BP 130/76
[2018-07-04] MEDS: MAGNESIUM SULF 20 GM/500 ML IV 500 ML IV SCH ×2 (05:52→15:52)
[2018-07-04 07:20] VITALS: BP 112/55
[2018-07-04] MEDS: DOCUSATE CALCIUM 240 MG CAP PO SCH ×2 (09:05→20:45)
[2018-07-04 11:00] VITALS: BP 100/63
--- NOTE | 2018-07-04 11:05 | OB/GYN Progress Note ---
OB Subjective Progress Notes Subjective Pt denies discomfort, has been up x 2 without dizziness or syncope. Tolerating ambulation to BR with assist. Voiding with problems, no BM yet. Taking tylenol and IBU as needed for pain. Denies N/V, headache or epigastric pain. GI: POS Flatus; NEG Nausea, NEG Vomiting, NEG Bowel Movement : Voiding Well, Vaginal Bleeding, Scant, Clots (passed 3 cm clot after voiding this am after being in bed for long period of time. Suspect not actively bleeding, no clots at this time. ) Pain: Mild, Comfortable, Tolerating PO Pain Meds Neurological: No Headache OB Objective Physical Exam Vital Signs Date Time Temp Pulse Resp B/P (MAP) Pulse Ox O2 Delivery O2 Flow Rate FiO2 07/04/18 03:45 103 16 130/76 (94) Room Air 07/03/18 20:45 98.5 91 Intake and Output 07/04/18 07:00 Intake Total 500 ml Output Total 6875 ml Balance -6375 ml Intake Oral 0 ml IV Total 500 ml Output Urine Total 6875 ml General Appearance: Alert/Awake/No Acute Distress Neurological: No Gross deficits Eyes: Normal Extraocular Movement & Vison, PERRLA ENT: Normal Cardiovascular: Normal Rhythm & Peripheral Pulses, Regular Rate and Rhythm Respiratory: No Respiratory Distress, Clear to Auscultation Abdomen: Soft, Non-Tender, Non-Distended, Bowel Sounds Present, Fundus Firm, Non-Tender Extremities: No Cyanosis,Clubbing or Edema, Warm; No Clonus, No Edema Integumentary: Pallor Psychological: Alert & Oriented X3, Appropriate Mood & Affect Result Diagram: 07/04/18 0531 07/04/18 0000 Reviewed Assessment and Plan Post Day: 1 Hospital Day: 3 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 (2) Pre-eclampsia during in third trimester, antepartum Assessment & Plan: Will continue to monitor BP and signs of PreE. (3) Gestational diabetes mellitus, class A1 Assessment & Plan: Advance diet as tolerated (4) examination following vaginal delivery Assessment & Plan: 1. Advance activity as tolerated, may shower if tolerating ambulation 2. Diet as tolerated 3. , using lanolin, support and teaching today 4. Repeat CBC tomorrow, plan to dc in the afternoon Problem Qualifiers (1) hemorrhage: hemorrhage type: delayed hemorrhage Qualified Codes: O72.2 - Delayed and secondary hemorrhage KYLER BURT CNM Jul 04, 2018 11:05
[2018-07-04 17:40] VITALS: BP 118/72
[2018-07-04 19:59] VITALS: BP 133/71
[2018-07-05 01:00] VITALS: BP 112/71
[2018-07-05] MEDS: IBUPROFEN 800 MG TAB PO SCH ×3 (01:14→16:59)
[2018-07-05 04:54] VITALS: BP 108/59
[2018-07-05 07:25] VITALS: BP 116/66
[2018-07-05] MEDS: DOCUSATE CALCIUM 240 MG CAP PO SCH (09:13)
--- NOTE | 2018-07-05 09:31 | OB/GYN Discharge Summary ---
Discharge Summary Reason for Hosp/Final Diag: (1) hemorrhage Hospital Course & Plan: A: Normotensive, Ambulatory, H/H stable. P: 1. Continue OTC iron supplement and vitamins. (2) Pre-eclampsia during in third trimester, antepartum Hospital Course & Plan: A: Normotensive, no PreE symptoms P: 1. Reviewed late Pre symptoms, given precautions regarding Motrin and PreE, will only take if needed (3) Gestational diabetes mellitus, class A1 Hospital Course & Plan: Euglycemic 1. Follow up in clinic at 6 weeks. (4) examination following vaginal delivery Hospital Course & Plan: Normal involution; breast feeding 1. Reviewed pelvic rest x 6 weeks 2. Follow up BP at 1 wk pp and visit at 6 weeks. 3. Continue vitamins and iron 4. Reviewed pp complications, bleeding, infection, and s/s of late PreE 5. Undecided regarding control, will follow up at 6 weeks. [place] Vital Signs Vital Signs Date Time Temp Pulse Resp B/P (MAP) Pulse Ox O2 Delivery O2 Flow Rate FiO2 07/05/18 07:25 98.6 86 16 116/66 (83) 94 Room Air Weight (Pounds): 180 Result Diagram: 07/05/18 0612 07/04/18 0000 Condition: Improved Discharge: Home, Self Skilled Nursing Meds Active Scripts Valacyclovir Hcl (VALTREX) 500 Mg Tablet, 500 MG PO BID, #40 TAB 1 Refill Prov:TREASURE ULLOA DO 06/25/18 Enoxaparin Sodium (ENOXAPARIN SODIUM) 40 Mg/0.4 Ml Disp.syrin, 40 MG SQ BID for 30 Days, #60 SYR 1 Refill Prov:TREASURE ULLOA DO 04/23/18 Blood Sugar Diagnostic (GLUCOSE TEST STRIP) 1 Each Strip, 1 EACH MC 4xDaily for 30 Days, #120 STRIP 4 Refills Prov:TREASURE ULLOA DO 04/23/18 Aspirin (ASPIR 81) 81 Mg Tablet.dr, 1 TAB PO BID for 1 Day, TAB Prov:TREASURE ULLOA DO 04/09/18 Enoxaparin Sodium (LOVENOX) 40 Mg/0.4 Ml Disp.syrin, 40 MG SQ BID, #30 SYR 3 Refills Prov:TREASURE ULLOA DO 01/09/18 Reported Medications Calcium Carbonate/Vitamin D3 (Calcium 500 mg Chewable Tablet) 500 Mg-100 Tab.chew 12/15/17 [place]-3 Fatty Acids (OMEGA-3) Unknown Strength Capsule, PO, CAPSULE 11/17/17 Vits W-Ca,Fe,Fa(<1MG) ( VITAMINS) 1 Each Tablet, 1 EACH PO DAILY, TAB 08/10/17 Follow up Referrals: [facility] - In Two Weeks @ [facility] Follow up with: [facility] [phone] Discharge Activity: Pelvic Rest (x 6 wks) Special Instructions: Follow up at 1 wk for BP check and 2 wk visit Problem Qualifiers (1) hemorrhage: hemorrhage type: delayed hemorrhage Qualified Codes: O72.2 - Delayed and secondary hemorrhage KYLER BURT CNM Jul 05, 2018 09:31
[2018-07-05] MEDS ORDERED: FERROUS SULFATE 325 MG TAB PO ONE (12:20)
[2018-07-05] MEDS: GLYCERIN/WITCH HAZEL LEAF 1 PK TP PRN (13:28)
[2018-07-05] MEDS: BENZOCAINE 20% 60 ML BTL TP PRN (13:29)
[2018-07-05 15:15] VITALS: BP 127/67
== END 2018-07-05 18:43 | disposition home or self-care (01) | DRG 806 ==
LOC: OB 10:50
PROVIDERS: ADMIT Obstetrics & Gynecology; ATTEND Obstetrics & Gynecology
PROC: 3E0P7VZ Introduction of Hormone into Female Reproductive, Via Natural or Artificial Opening (ICD-10-PCS; principal; 2018-07-02)
PROC: 10E0XZZ Delivery of Products of Conception, External Approach (ICD-10-PCS; 2018-07-02)
PROC: 0KQM0ZZ Repair Perineum Muscle, Open Approach (ICD-10-PCS; 2018-07-02)
PROC: 10907ZC Drainage of Amniotic Fluid, Therapeutic from Products of Conception, Via Natural or Artificial Opening (ICD-10-PCS; 2018-07-02)
PROC: 0UC97ZZ Extirpation of Matter from Uterus, Via Natural or Artificial Opening (ICD-10-PCS; 2018-07-03)
DX: O14.14 Severe pre-eclampsia complicating childbirth (principal); O98.52 Other viral diseases complicating childbirth; Z37.0 Single live birth; O13.4 Gestational [pregnancy-induced] hypertension without significant proteinuria, complicating childbirth; Z3A.37 37 weeks gestation of pregnancy; O24.429 Gestational diabetes mellitus in childbirth, unspecified control; O70.1 Second degree perineal laceration during delivery; O72.2 Delayed and secondary postpartum hemorrhage; I95.89 Other hypotension; O99.43 Diseases of the circulatory system complicating the puerperium; B00.9 Herpesviral infection, unspecified
CPT/HCPCS: 36415; 36416; 82040; 82247; 82310; 82374; 82435; 82565; 82947; 82948; 84075; 84132; 84155; 84295; 84450; 84460; 84520; 85027; 86850; 86900; 86901; 86920; J0690; J2001; J2210; J2370; J2590; J3010; J3475; J7120

== ENCOUNTER → 2018-07-02 | Outpatient (CLI) | payer BC ==
[2018-05-20 17:36] VITALS: BMI 29.4
[~2018-07-02] MED LIST changes: -DIPH0.5D12 IM; +DIPH0.5S2 IM; +DOCU-416 PO
[2018-07-02 09:59] LABS: PLATELET COUNT, AUTOMATED 201 K/uL (150-450)
== END ==
LOC: LAB 09:04
PROVIDERS: ATTEND Student in an Organized Health Care Education/Training Program
DX: O14.93 Unspecified pre-eclampsia, third trimester (principal); O24.410 Gestational diabetes mellitus in pregnancy, diet controlled; O16.9 Unspecified maternal hypertension, unspecified trimester
CPT/HCPCS: 36415; 82040; 82247; 82310; 82374; 82435; 82565; 82947; 84075; 84132; 84155; 84295; 84450; 84460; 84520; 85025